=== PATIENT | male | born 1980 | race Caucasian/White ===

== ENCOUNTER 2016-10-06 15:14 | Inpatient (IN) ==
--- NOTE | 2016-10-06 15:37 | Emergency Department Note ---
Disposition Clinical Impression: Calculus of kidney, Acute renal failure Disposition: Admitted As Inpatient Condition: Good [facility] - Forms: Work/School Release, ED Satisfaction Letter Abdominal Pain HPI - General Chief Complaint: ED Abdominal Pain Stated Complaint: kidney stones Time Seen by Provider: 10/06/16 15:18 Source: patient Nursing Notes Reviewed: Yes Vital Signs Reviewed: Yes - History of Present Illness HPI Narrative: [facility]. Per patient report he developed symptoms on 10/02/2016. He was seen on 10/03/2016 and diagnosed a urinary tract infection. Patient was started on ciprofloxacin and he notices symptoms continue to worsen so [facility]. At their facility found the patient had a 5 mm distal left ureter stone and a creatinine that was increased to 2.02 which is abnormal for him. Patient feels better as he was medicated over facility. Patient does admit to subjective fevers and chills over the past few days. Pain Scale: 2 - Related Data Home Medications Medication Instructions Recorded Confirmed Aspirin Enteric Coated [Aspirin EC] 81 mg PO DAILY 10/06/16 10/06/16 Atorvastatin [Lipitor] 40 mg PO HS 10/06/16 10/06/16 Carvedilol [Coreg] 6.25 mg PO BIDWM 10/06/16 10/06/16 Ciprofloxacin [Cipro] 500 mg PO BID 10/06/16 10/06/16 Clopidogrel [Plavix] 75 mg PO DAILY 10/06/16 10/06/16 Isosorbide MONOnitrate (24 HR) 30 mg PO DAILY 10/06/16 10/06/16 [Imdur] Levothyroxine [Synthroid] 50 mcg PO 0630 10/06/16 10/06/16 Multivitamin-Min/Iron/FA/Vit K 1 each PO DAILY 10/06/16 10/06/16 [Multi-Day Plus Minerals Tablet] Ondansetron [Zofran] 8 mg PO TID 10/06/16 10/06/16 Allergies Allergy/AdvReac Type Severity Reaction Status Date / Time No Known Allergies Allergy Verified 10/06/16 15:25 All systems ED: reviewed and negative except as stated. Abdominal Pain PMH - Past Medical History Medical history: Reports: hypertension, kidney stones, myocardial infarction Psychiatric history: Reports: depression - Social History Smoking status: Never smoker Alcohol use: Reports: none Drug use: Reports: none Physical Exam - General Limitations: no limitations General appearance: alert, in no apparent distress - Head Head exam: atraumatic, normocephalic, normal inspection - Eye Eye exam: Present: normal appearance, PERRL, EOMI - ENT ENT exam: normal exam, normal oropharynx, mucous membranes moist - Neck Neck exam: Present: normal inspection, full ROM, trachea midline - Chest Chest inspection: Present: normal inspection, symmetric chest wall rise - Respiratory Respiratory exam: Present: normal lung sounds bilaterally - Cardiovascular Cardiovascular exam: Present: regular rate, normal rhythm, normal heart sounds - Abdominal Exam Abdominal exam: Present: soft, Non-Tender. Absent: tenderness, distention, guarding, rebound, rigidity - Extremities Exam Extremities exam: Present: normal inspection, full ROM. Absent: tenderness, pedal edema - Back Exam Back exam: Present: CVA tenderness (L) - Neurological Exam Neurological exam: Present: alert, oriented X3 - Psychiatric Psychiatric exam: Present: normal affect, normal mood - Skin Skin exam: Present: warm, dry, intact, normal color Course - Consultations Consultation #1: Discussed this case with Dr. Hartley who accepted patient to his service for admission Vital Signs Temperature 98.6 F 10/06/16 15:16 Pulse Rate 84 10/06/16 15:16 Respiratory Rate 16 10/06/16 15:16 Blood Pressure 150/97 10/06/16 15:16 O2 Sat by Pulse Oximetry 96 10/06/16 15:16 Temperature 98.6 F 10/06/16 15:16 Pulse Rate 84 10/06/16 15:16 Respiratory Rate 16 10/06/16 15:16 Blood Pressure 150/97 10/06/16 15:16 O2 Sat by Pulse Oximetry 96 10/06/16 15:16 Oxygen Delivery Oxygen Delivery Room Air Abdominal Pain - Differential Diagnosis Differential Diagnosis: Likely: abdominal pain non-specific, acute appendicitis , calculus of kidney, constipation, diverticulitis, gastroenteritis, small bowel obstruction - Lab Data Lab results reviewed: Yes I reviewed the patient's lab results. Lab results narrative: WBC 14.9 hemoglobin 16.8 hematocrit 49.6 Chemistry panel shows a sodium of 140 potassium of 4.0 chloride of 103, CO2 of 28, BUN of 22, creatinine of 2.0 ,to glucose of 100
[2016-10-06] MEDS ORDERED: *HR* Morphine 2 MG/ML SYRINGE IVP PRN (15:59)
[2016-10-06] MEDS ORDERED: *HR* HYDROmorphone (PF) 1 MG/ML SYRINGE IVP PRN (15:59)
[2016-10-06] MEDS ORDERED: Ondansetron 4 MG/2 ML VIAL IVP PRN (15:59)
[2016-10-06] MEDS ORDERED: *HR* Promethazine 25 MG/ML VIAL IVP PRN (15:59)
[2016-10-06] MEDS ORDERED: Naloxone 0.4 MG/ML INJ IVP PRN (15:59)
--- NOTE | 2016-10-06 16:10 | Urology History & Physical ---
Date of Encounter: 10/06/16 Time of Encounter: 16:07 Assessment and Plan (1) Ureteral stone with hydronephrosis Current Visit: Yes Status: Acute will plan a stone extraction if he does not pass the stone overnight. pain control. (2) Acute renal disease Current Visit: Yes Status: Acute significant increase in Cr from baseline. will start IVF and recheck BUN/Cr. plan for stone extraction and stent History of Present Illness Chief complaint: flank pain HPI: Mr. Feliciano is a 36 year old male 5 mm left distal ureteral stone with hydronephrosis. pt has had pain for a few weeks. Cr up to 2.0. baseline normal. [facility] Past Med Surg Social Fam HX - Past Medical History Medical history: hypertension, kidney stones, myocardial infarction Psychiatric history: depression - Social History Smoking Status: Never smoker Smokeless Tobacco Status: No Alcohol use: none Drug use: none Medications and Allergies Aspirin Enteric Coated [Aspirin EC] 81 mg PO DAILY 10/06/16 [History] Atorvastatin [Lipitor] 40 mg PO HS 10/06/16 [History] Carvedilol [Coreg] 6.25 mg PO BIDWM 10/06/16 [History] Ciprofloxacin [Cipro] 500 mg PO BID 10/06/16 [History] Clopidogrel [Plavix] 75 mg PO DAILY 10/06/16 [History] Isosorbide MONOnitrate (24 HR) [Imdur] 30 mg PO DAILY 10/06/16 [History] Levothyroxine [Synthroid] 50 mcg PO 0630 10/06/16 [History] Multivitamin-Min/Iron/FA/Vit K [Multi-Day Plus Minerals Tablet] 1 each PO DAILY 10/06/16 [History] Ondansetron [Zofran] 8 mg PO TID 10/06/16 [History] Allergies No Known Allergies Allergy (Verified 10/06/16 15:25) Review of Systems - Constitutional chills, fever(s) - EENT Nose, mouth and throat: no dizziness - Cardiovascular no chest pain - Respiratory no cough - Gastrointestinal abdominal pain, nausea - Genitourinary flank pain, no hematuria - Musculoskeletal back pain - Integumentary no erythema - Neurological no confusion - Psychiatric no anxiety - Hematologic/Lymphatic no easy bleeding - Allergic/Immunologic no throat swelling Exam Initial Vital Signs Temp Pulse Resp BP Pulse Ox 98.6 F 84 16 150/97 96 10/06/16 15:16 10/06/16 15:16 10/06/16 15:16 10/06/16 15:16 10/06/16 15:16 - General physical appearance Present: well developed, no distress - Eyes Present: PERRL - ENT Present: normal nares - Neck Present: no masses - Respiratory Present: normal respiratory effort - Cardiovascular Cardiovascular exam IM: RRR - Abdomen Abdomen: Present: soft - Integumentary Present: no rash - Neurologic Present: normal coordination - Musculoskeletal Present: normal gait Urology Results - Labs All other labs normal.
[2016-10-06 17:10] LABS: Hematocrit 44.4 % (37.5-50.1); Hemoglobin 14.7 g/dL (12.9-16.9); Mean Corpuscular HGB Conc 33.1 g/dL (31.6-35.5); Mean Corpuscular Hemoglobin 26.2 pg (28.0-33.3); Mean Corpuscular Volume 79.1 fL (83.0-100.0); Mean Platelet Volume 9.6 fL (9.4-12.4); Platelet Count 224 K/mcL (140-400); Red Blood Count 5.61 M/mcL (4.19-5.50); Red Cell Distribution Width 13.4 % (11.5-14.5)
[2016-10-06 18:26] LABS: Calcium 9.3 mg/dL (8.6-10.8); Potassium 4.4 mEq/L (3.5-4.5)
[2016-10-06] MEDS: 0.9 % Sodium Chloride 1,000 ML IVC SCH (18:57)
[2016-10-06] MEDS: *HR* HYDROcodone/Acet 5/325 mg TABLET PO SCH ×2 (18:58→21:42)
[2016-10-07] MEDS: *HR* HYDROcodone/Acet 5/325 mg TABLET PO SCH ×5 (00:19→21:37)
[2016-10-07] MEDS: 0.9 % Sodium Chloride 1,000 ML IVC SCH ×2 (03:40→12:54)
[2016-10-07] MEDS ORDERED: Bisacodyl 10 MG RECTAL SUPPOSITORY RC ONE (07:35)
[2016-10-07] MEDS ORDERED: Isosorbide MONOnitrate (24 HR) 30 MG TAB.ER.24H PO SCH (09:00)
[2016-10-07] MEDS ORDERED: Aspirin Enteric Coated 81 MG Tablet PO SCH (09:00)
--- NOTE | 2016-10-07 15:49 | Electrocardiograph Report ---
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
--- NOTE | 2016-10-07 15:54 | Anesthesia Evaluation PreOp ---
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 Any Significant HX Other Medical History: Renal (kidney stones), Thyroid Anesthesia History: Past Anesthesia (no prior general anesthesia) Alcohol Use: none Drug use: none Medications and Allergies Aspirin Enteric Coated [Aspirin EC] 81 mg PO DAILY 10/06/16 [History] Atorvastatin [Lipitor] 40 mg PO HS 10/06/16 [History] Carvedilol [Coreg] 6.25 mg PO BIDWM 10/06/16 [History] Ciprofloxacin [Cipro] 500 mg PO BID 10/06/16 [History] Clopidogrel [Plavix] 75 mg PO DAILY 10/06/16 [History] Isosorbide MONOnitrate (24 HR) [Imdur] 30 mg PO DAILY 10/06/16 [History] Levothyroxine [Synthroid] 50 mcg PO 0630 10/06/16 [History] Multivitamin-Min/Iron/FA/Vit K [Multi-Day Plus Minerals Tablet] 1 each PO DAILY 10/06/16 [History] Ondansetron [Zofran] 8 mg PO TID 10/06/16 [History] Allergies No Known Allergies Allergy (Verified 10/06/16 15:25) - Meds/Allergy Pre-op Review Medications Reviewed: Yes Allergies Reviewed: Yes Beta Blockers on Current Med List: Yes Anesthesia Results - Labs 10/06/16 16:36 10/06/16 16:36 - Imaging EKG: report reviewed (10/06/2016 SR, moderate T wave abnormality) Anesthesia Exam Vital Signs/O2 Sat, Most Current Temp Pulse Resp BP Pulse Ox 98.6 F 82 16 130/86 94 L 10/07/16 15:00 10/07/16 15:00 10/07/16 15:00 10/07/16 15:00 10/07/16 15:00 Height: 5'5''/1.65 m Weight: 202 lbs/91.626 kg NPO (# of Hours): 8 Pain Scale: 3 Pain Scale Used: Numeric (1 - 10) - HEENT Pupil (Motor): EOMI Mallampati: II Teeth: Normal (broken right lower molar) Oral Opening: Greater than 3 - 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
[2016-10-07] MEDS ORDERED: Lidocaine -MPF 2% 2 ML VIAL ONE (17:05)
[2016-10-07] MEDS ORDERED: *HR* Propofol 200 MG/20 ML VIAL IVP ONE (17:05)
[2016-10-07] MEDS ORDERED: *HR* FentaNYL (PF) 100 MCG/2 ML VIAL ONE (17:05)
[2016-10-07] MEDS ORDERED: Dexamethasone 4 MG/ML VIAL ONE (17:18)
[2016-10-07] MEDS ORDERED: Ondansetron 4 MG/2 ML VIAL ONE (17:18)
[2016-10-07] MEDS ORDERED: Ketorolac 30 MG/ML VIAL ONE (17:18)
[2016-10-07] MEDS ORDERED: *HR* HYDROmorphone (PF) 1 MG/ML SYRINGE IVP PRN ×2 (17:27→18:43)
[2016-10-07] MEDS ORDERED: *HR* Promethazine 25 MG/ML VIAL IVP PRN ×2 (17:27→18:43)
--- NOTE | 2016-10-07 18:24 | Anesthesia Evaluation Post Op ---
Date of Encounter: 10/07/16 Time of Encounter: 18:24 - Vital Signs Vital Signs: Vital Signs/O2 Sat, Most Current Temp Pulse Resp BP Pulse Ox 98.4 F 74 16 143/98 94 L 10/07/16 18:17 10/07/16 18:17 10/07/16 18:17 10/07/16 18:17 10/07/16 18:17 - Lungs Lungs: Clear Ascult./Percussion - Airway Airway: Non-obstructed - Cardiovascular Regular Rate - Mental Status Mental Status: Alert & Oriented, Answers Appropriately - Pain Pain Scale: 0 Pain Scale used: Numeric (1 - 10) - Nausea Vomiting Nausea Vomiting: Not Present - Hydration Hydration: Ice chips, Has not voided - Discharge PostOp Status: Transfer Patient to floor
[2016-10-07] MEDS ORDERED: Naloxone 0.4 MG/ML INJ IVP PRN (18:43)
[2016-10-07] MEDS ORDERED: *HR* Morphine 2 MG/ML SYRINGE IVP PRN (18:43)
[2016-10-07] MEDS ORDERED: Ondansetron 4 MG/2 ML VIAL IVP PRN (18:43)
[2016-10-07] MEDS ORDERED: 0.9 % Sodium Chloride 1,000 ML IVC SCH (18:43)
[2016-10-08] MEDS: *HR* HYDROcodone/Acet 5/325 mg TABLET PO SCH ×3 (00:25→10:43)
[2016-10-08 03:59] VITALS: BP 129/86
[2016-10-08 05:50] LABS: BUN/Creatinine Ratio 15 (6-26); Blood Urea Nitrogen 20 mg/dL (8-26); Calcium 8.3 mg/dL (8.6-10.8); Carbon Dioxide 23 mEq/L (19-29); Chloride 107 mEq/L (98-109); Glucose 114 mg/dL (70-99); Osmolality,Calculated 293 (280-300); Potassium 4.5 mEq/L (3.5-4.5); Sodium 140 mEq/L (136-145); eGFR For African Americans > 60 (> 60); eGFR For Non-African Americans 59 (> 60)
--- NOTE | 2016-10-08 06:56 | Discharge Summary ---
Date of Encounter: 10/08/16 Time of Encounter: 06:53 - Discharge Diagnosis (1) Ureteral stone with hydronephrosis Priority: Primary Status: Resolved (2) Acute renal disease Priority: Secondary Status: Resolved - Discharge Medications Prescriptions: HYDROcodone/Acet 5/325 mg [[place] 5-325 mg] 1 tab PO Q4HR PRN #20 tablet PRN Reason: Pain Cephalexin [Keflex] 500 mg PO BID #10 capsule Phenazopyridine [Pyridium] 200 mg PO TID PRN #20 tablet PRN Reason: burning with urination Home Medications: Aspirin Enteric Coated [Aspirin EC] 81 mg PO DAILY 10/06/16 [History] Atorvastatin [Lipitor] 40 mg PO HS 10/06/16 [History] Carvedilol [Coreg] 6.25 mg PO BIDWM 10/06/16 [History] Clopidogrel [Plavix] 75 mg PO DAILY 10/06/16 [History] Isosorbide MONOnitrate (24 HR) [Imdur] 30 mg PO DAILY 10/06/16 [History] Levothyroxine [Synthroid] 50 mcg PO 0630 10/06/16 [History] Multivitamin-Min/Iron/FA/Vit K [Multi-Day Plus Minerals Tablet] 1 each PO DAILY 10/06/16 [History] Cephalexin [Keflex] 500 mg PO BID #10 capsule 10/08/16 [Rx] HYDROcodone/Acet 5/325 mg [[place] 5-325 mg] 1 tab PO Q4HR PRN #20 tablet [Rx] Phenazopyridine [Pyridium] 200 mg PO TID PRN #20 tablet 10/08/16 [Rx] Allergies/Adverse Reactions: Allergies No Known Allergies Allergy (Verified 10/06/16 15:25) Labs on day of discharge: Labs from last 24 hours 10/08/16 10/07/16 10/07/16 05:07 18:40 11:15 Sodium 140 Potassium 4.5 Chloride 107 Carbon Dioxide 23 BUN 20 Creatinine 1.37 H Est GFR ( Amer) > 60 Est GFR (Non-Af Amer) 59 L BUN/Creatinine Ratio 15 Glucose 114 H POC Glucose 80 84 Calculated Osmolality 293 Calcium 8.3 L - Impressions ITS Impressions Retrograde Pyelogram 10/07/16 17:14 IMPRESSION: Intraprocedural fluoroscopic spot images as above. See separate procedure report for more information. D/ / Gregory Lin MD / Gregory Lin MD Interpreting Provider: Gregory Lin MD Date of admission: 10/06/16 17:50 [facility] Discharging clinician: Dl Hartley Anticipated date of discharge: 10/08/16 - Patient Status Disposition: Home, Self-Care Functional capacity at discharge: independent ambulation Overall status at discharge: patient is progressing back to baseline - Discharge Instructions Follow Up With: [facility] [Outside] Dl Hartley MD [Partnered Physician] - (Next week for cystoscopy and stent removal in the office) Additional Instructions: Expect stent discomfort including urgency, frequency, burning on urination, blood in the urine, flank pain during urination. Call if excessive. Call if fever over 101 No activity restrictions Stent will be removed in the urology office next week. - Diet and Activity Activity: increase activity as tolerated Diet: advance to your usual diet - Hospital Course Hospital course: Mr. Feliciano is a 36 year old male admitted yesterday with an obstructing left ureteral calculi and significant acute renal insufficiency with a creatinine of 2.5. He underwent a stone extraction yesterday and stent placement. Creatinine this morning stone to 1.37. He states he feels much better with resolution of pain and nausea. Plan to discharge. - Time Spent with Patient Total time spent providing and/or coordinating discharge services: Less than 30 minutes Exam Initial Vital Signs Temp Pulse Resp BP Pulse Ox 98.6 F 84 16 150/97 96 10/06/16 15:16 10/06/16 15:16 10/06/16 15:16 10/06/16 15:16 10/06/16 15:16 - General physical appearance Present: well developed, no distress - Eyes Present: PERRL - Abdomen Abdomen: Present: soft - VTE Documentation of Mechanical Device: Intermittent pneumatic compression device
[2016-10-08] MEDS ORDERED: Isosorbide MONOnitrate (24 HR) 30 MG TAB.ER.24H PO SCH (09:00)
[2016-10-08] MEDS ORDERED: Aspirin Enteric Coated 81 MG Tablet PO SCH (09:00)
--- NOTE | 2016-10-09 17:47 | Operative Note ---
Date of procedure: 10/08/16 Pre-op diagnosis: left ureteral stone Post-op diagnosis: same Procedure: left ureteroscopic stone extraction with holmium laser left retrograde pyelogram left JJ stent Anesthesia: GETA Surgeon: Dl Hartley Estimated blood loss (cc): 0 Specimen: stone Condition: stable Disposition: PACU Procedure in Detail: PROCEDURE IN DETAIL: Patient was taken back to the operating room, positioned supine on the operating table. Anesthesia was applied without complication. They were moved into dorsal lithotomy. Careful attention was maintained to cushion all pressure points for patient's safety. They were prepped and draped in sterile fashion. Time-out was performed with the proper patient and procedure. A 21-Maldivian rigid cystoscope was inserted into the bladder without difficulty. Systematic examination of bladder revealed no abnormalities. The ureteral orifice was cannulated using a 5-Maldivian ureteral Catheter and a retrograde pyelogram was performed using Isovue. A filling defect was identified which corresponded to the stone in the distal ureter. At that point , a zip wire was placed through the 5-Maldivian and confirmed in the renal pelvis with fluoroscopy. An 8-10 dilator was then placed over the zip wire to passively dilate the ureteral orifice. A semi-rigid ureteroscope was carefully inserted into the bladder and guided into the ureteral oriface. At that point, the stone was encountered and I felt that it required fragmentation for safe extraction. A 200 micron holmium laser fiber on a setting of 8 and 800 was used to fragment the stone into multiple pieces. The fragments were individually basketed out of the ureter with a 1.9 tipless basket. All stone in the ureter was removed. A 4.8 x 26 ureteral stent was placed over the zip wire under fluoroscopy without complication. The bladder was drained along with the stone fragments. They were collected and sent for stone analysis. No string was left attached the stent because of the renal insufficiency.
== END 2016-10-08 12:05 | disposition home or self-care (01) | DRG 669 ==
LOC: 3ANU 15:14 → EMEROO 15:14 → 3ANU 15:51
PROVIDERS: ADMIT Urology; ATTEND Urology